=== PATIENT | female | born 1980 | race African-American/Black ===

== ENCOUNTER 2022-05-12 14:36 | Emergency (ER) | payer MEDICAID ==
[~2022-05-12] VITALS: Ht 157.5 cm; Wt 90.7 kg
[2022-05-12 14:36] VITALS: BP_SYST 156
--- NOTE | 2022-05-12 14:36 | NUR ---
BROUGHT IN BY [facility], PLACED IN BED #4 AND TRIAGED.
--- NOTE | 2022-05-12 14:40 | NUR ---
ACCORDING TO SPOUSE, PT JUST GOT NEWS OF MOTHERS PASSING AND STARTED HAVING CHEST PAIN AND CHEST TIGHTNESS. STATES TINGLING TO LEFT SIDE OF BODY. PT STATES SHE FELL DOWN
--- NOTE | 2022-05-12 14:55 | NUR ---
DR. DAMON AT BEDSIDE TO ASSESS PT.
--- NOTE | 2022-05-12 15:00 | NUR ---
RECEIVED PT FROM KALYANI QUIROGA. PT HAS C/O ANXIETY. PT IS AAOX4. RESP E/U. ON R/A, DENIES N/V/D/C. SKIN INTACT. NO EDEMA. DENIES PAIN. AT BEDSIDE. SIDERAILS UP X2.
[2022-05-12 15:16] LABS: HEMATOCRIT 31.9 % (36-48); HEMOGLOBIN 10.5 g/dL (12.0-16.0); MEAN CORPUSCULAR HEMOGLOBIN 22 pg (27-31); MEAN CORPUSCULAR HGB CONC 33 % (32-36); MEAN CORPUSCULAR VOLUME 66 fL (79.0-98.0); PLATELET COUNT (AUTO) 446 K/uL (130-430); RED BLOOD CELL COUNT(AUTO) 4.84 MIL/uL (4.2-6.2); WHITE BLOOD COUNT (AUTO) 7.8 K/uL (4.8-10.8)
[2022-05-12 15:45] LABS: ANION GAP 6 (5-15); CHLORIDE 104 mmol/L (98-107); CREATININE 0.84 mg/dL (0.55-1.30); GLUCOSE 161 mg/dL (70-99); POTASSIUM 3.8 mmol/L (3.5-5.1); UREA NITROGEN, BLOOD 13 mg/dL (8-21)
--- NOTE | 2022-05-12 15:45 | NUR ---
PT TAKEN FOR CT SCAN.
[2022-05-12 15:48] LABS: LYMPHOCYTES % (AUTO) 30.4 % (20.5-51.5); NEUTROPHILS % (AUTO) 59.9 % (40.0-70.0)
[2022-05-12 15:49] LABS: BASOPHILS % (AUTO) 0.7 % (0.0-2.0); EOSINOPHILS % (AUTO) 0.6 % (0.0-4.0); MONOCYTES % (AUTO) 8.4 % (1.7-9.3); NEUTROPHILS # (AUTO) 4.6 K/uL (1.8-7.7)
[2022-05-12 15:50] LABS: BASOPHILS # (AUTO) 0.1 K/uL (0.0-0.2); LYMPHOCYTES # (AUTO) 2.3 K/uL (1.0-5.5); MONOCYTES # (AUTO) 0.7 K/uL (0.0-1.0)
[2022-05-12 15:54] LABS: ALANINE AMINOTRANSFERASE 18 U/L (12-78); ALBUMIN 3.7 g/dL (3.4-4.8); ASPARTATE AMINOTRANSFERASE 16 U/L (10-37); TOTAL BILIRUBIN 0.1 mg/dL (0.0-1.0)
[2022-05-12 15:57] LABS: GFR AFRICAN AMERICAN 96 mL/min (>90)
--- NOTE | 2022-05-12 16:00 | NUR ---
PT BACK ON UNIT, INFORMED URINE SAMPLE IS NEEDED. PT VERBALIZED UNDERSTANDING. PT PLACED ON MONITOR.
--- NOTE | 2022-05-12 16:50 | NUR ---
Patient given written and verbal discharge instructions and verbalizes understanding. ER MD discussed with patient the results and treatment provided. Patient in stable condition. ID arm band removed. Patient educated on pain management and to follow up with PMD. Pain Scale 0/10. Opportunity for questions provided and answered. Medication side effect fact sheet provided.
[2022-05-12 16:56] VITALS: BP_SYST 138
== END 2022-05-12 16:50 | disposition home or self-care (01) ==
LOC: SED 14:36
DX: R55 Syncope and collapse (principal); R06.4 Hyperventilation; R51.9 Headache, unspecified; E11.9 Type 2 diabetes mellitus without complications; Z79.899 Other long term (current) drug therapy
CPT/HCPCS: 36415; 70450-TC; 71045; 76376; 80053; 82550; 83605; 84484; 85025; 93005; 99285